=== PATIENT | male | born 1955 | race Two or more races ===

== ENCOUNTER 2021-10-31 16:59 | Emergency (ER) | payer OTHER ==
[~2021-10-31] VITALS: Ht 162.6 cm; Wt 94.3 kg
[2021-10-31] MEDS ORDERED: METROPOLOL (17:17)
[2021-10-31] MEDS ORDERED: LOSARTAN (17:17)
[2021-10-31] MEDS ORDERED: BENZONATATE200 M1 PO (21:27)
[2021-10-31] MEDS ORDERED: MUCINEX1200 MG PO (21:27)
== END 2021-10-31 21:36 | disposition home or self-care (01) ==
LOC: ER 16:59
DX: U07.1 COVID-19 (principal); I10 Essential (primary) hypertension